=== PATIENT | female | born 1955 | race Caucasian/White ===

== ENCOUNTER 2018-11-09 16:59 | Emergency (ER) | payer BC ==
[2018-11-09 17:30] VITALS: BP 150/72
[2018-11-09] MEDS ORDERED: Tetan/Diph/Pertus SYR(Tdap)* 0.5 ML SYR(BOOSTRIX) use SYR IM ONE (17:35)
[2018-11-09] MEDS ORDERED: Lidocaine 1%** 5 ML VIAL INJ ONE (17:36)
--- NOTE | 2018-11-09 18:58 | UC ---
Laceration HPI - HPI Summary HPI Summary: Pt presents with c/o laceration to right index finger. Pt was walking her dog and the dog went to flavia another animal and pulled quickly on pt's hand and pt' s hand hit metal pole. Pt is unsure of last tetanus shot. - History Of Current Complaint Chief Complaint: UCLaceration Stated Complaint: RIGHT INDEX FINGER LAC Time Seen by Provider: 11/09/18 17:18 Hx Obtained From: Patient Hx Last Menstrual Period: Years ago. Laceration Location: Finger - right index finger Mechanism Of Injury: Blunt Trauma Onset/Duration: Sudden Onset Severity: Moderate Pain Intensity: 0 Pain Scale Used: 0-10 Numeric Aggravating Factors: Position, Movement Related History: Dominant Hand Right - Allergies/Home Medications Allergies/Adverse Reactions: Allergies Allergy/AdvReac Type Severity Reaction Status Date / Time Penicillins AdvReac Diarrhea Verified 11/09/18 17:21 PMH/Surg Hx/FS Hx/Imm Hx Previously Healthy: Yes Other History Of: Negative For: HIV, Hepatitis B, Hepatitis C, Anticoagulant Therapy - Surgical History Surgical History: Yes Surgery Procedure, Year, and Place: right knee ACL repair, left shoulder rotator cuff, tonsills, c-sections x 2, sinus surgery, ear surgeries, gall bladder - Family History Known Family History: Positive: Cardiac Disease, Hypertension - Social History Occupation: Employed Full-time Lives: With Family Alcohol Use: None Substance Use Type: None Smoking Status (MU): Never Smoked Tobacco Have You Smoked in the Last Year: No - Immunization History Most Recent Tetanus Shot: unknown Vaccination Up to Date: No Review of Systems All Other Systems Reviewed And Are Negative: Yes Constitutional: Positive: Negative Skin: Positive: Other - laceration right index finger Eyes: Positive: Negative ENT: Positive: Negative Respiratory: Positive: Negative Cardiovascular: Positive: Negative Gastrointestinal: Positive: Negative Genitourinary: Positive: Negative Motor: Positive: Negative Neurovascular: Positive: Negative Musculoskeletal: Positive: Negative, Myalgia - at laceration site Neurological: Positive: Negative Psychological: Positive: Negative Is Patient Immunocompromised?: No Physical Exam Triage Information Reviewed: Yes Appearance: Pain Distress Vital Signs: Initial Vital Signs Temp 99 F 11/09/18 17:24 Pulse 83 11/09/18 17:24 Resp 18 11/09/18 17:24 BP 150/72 11/09/18 17:24 Pulse Ox 98 11/09/18 17:24 Vital Signs Reviewed: Yes Eye Exam: Normal ENT Exam: Normal, Other - pt is hard of hearing in right ear. Dental Exam: Normal Neck exam: Normal Respiratory: Positive: No respiratory distress Musculoskeletal Exam: Normal Musculoskeletal: Positive: Strength Intact, ROM Intact Neurological Exam: Normal Psychological Exam: Normal Skin Exam: Other - laceration right finger just proximal of PIP joint on dorsal aspect. Laceration Repair - Laceration Repair 1 Description: Linear Laceration Size After Repair: Length (cm) - 2.5, Width (mm) - 4, Depth (mm) - 3 Modified For Repair: No Anesthesia Used: 1.0% Lido - 5 cc Cleansing Completed Via Routine Prep: Yes Irrigation With Pressure Irrigation Device: Yes Closure Material: Sutures - 7 sutures of 4-0 prolene Closure Method: Single Layer Suture Of: Skin Suture Type: Prolene Diagnostics - Radiology No standard instances Radiology Interpretation Completed By: Radiologist - IMPRESSION: NO ACUTE OSSEOUS INJURY. IF SYMPTOMS PERSIST, RECOMMEND REPEAT IMAGING. Laceration Course/Dx - Differential Dx - Laceration/Wound Differental Diagnoses: Laceration, Tendon Laceration - Diagnosis Provider Diagnosis: Laceration of right index finger Discharge - Sign-Out/Discharge Documenting (check all that apply): Patient Departure All imaging exams completed and their final reports reviewed: Yes - Discharge Plan Condition: Stable Disposition: HOME Patient Education Materials: Care For Your Stitches (DC), Laceration (ED) Referrals: Amarjit Hendrickson MD [Primary Care Provider] - If Needed Additional Instructions: Please return to clinic in 8-10 days for suture removal. Please monitor for signs or symptoms of infection that include but not limited to increased tenderness, redness, purulent drainage, swelling, fever and/or chills. Please follow up immediately if you notice any of these. - Billing Disposition and Condition Condition: STABLE Disposition: Home
== END 2018-11-09 18:48 | disposition home or self-care (01) ==
LOC: UCCORT 16:59
DX: S61.210A Laceration without foreign body of right index finger without damage to nail, initial encounter (principal); W22.09XA Striking against other stationary object, initial encounter; Y93.K1 Activity, walking an animal; Y92.9 Unspecified place or not applicable; Z88.0 Allergy status to penicillin
CPT/HCPCS: 12001; 90471; 90715; 99211; G0463

== ENCOUNTER 2024-05-17 22:08 | Observation (INO) ==
[2024-05-17] MEDS: Lactated Ringers 1000 ml BAG 1,000 ML IV ONE (23:53)
[2024-05-18 01:13] LABS: ABS Lymphocytes 0.4 10^3/uL (1.0-4.8); ABS Monocytes 0.9 10^3/uL (0.0-0.9); ABS Neutrophils 6.4 10^3/uL (1.5-7.6); Eosinophil % 0.2 %; Hematocrit 41.3 % (35-45); Hemoglobin 14.2 g/dL (11.5-14.3); Lymphocyte % 4.6 %; Mean Corpuscular Hemoglobin 33.8 pg (27-33); Mean Corpuscular Hgb Conc 34.3 g/dL (31-36); Mean Corpuscular Volume 98.7 fL (80-97); Mean Platelet Volume 8.2 fL (7.5-11.2); Platelet Count 190 10^3/uL (150-450); Red Blood Count 4.19 10^6/uL (3.63-4.92); Red Cell Distribution Width 14.1 % (12-17); White Blood Count 7.6 10^3/uL (3.8-11.8)
[2024-05-18 02:06] LABS: Calcium 8.8 mg/dL (8.6-10.3); Creatinine, Serum 1.13 mg/dL (0.51-0.95); Potassium 3.8 mmol/L (3.5-5.0); eGFR CKD-EPI 52.3 (>60)
[2024-05-18 02:45] LABS: High Sensitivity Troponin 1 Hr 7 pg/mL (<15)
[2024-05-18] MEDS: Iodixanol 320 (CONTRAST) 100 ML SDV IV ONE (03:56)
[2024-05-18] MEDS: Lactated Ringers 1000 ml BAG 1,000 ML IV ONE (07:02)
[2024-05-18] MEDS: NS 0.9% 1000 ml BAG 1,000 ML IV SCH (08:33)
[2024-05-19 06:13] LABS: Calcium 8.1 mg/dL (8.6-10.3); Creatinine, Serum 1.02 mg/dL (0.51-0.95); Potassium 3.5 mmol/L (3.5-5.0); eGFR CKD-EPI 59.2 (>60)
[2024-05-19 14:12] VITALS: BP 151/73
== END 2024-05-19 16:00 | disposition home or self-care (01) ==
LOC: EDHOLD 22:08 → ED 22:08 → MEDTELE 05-18 09:21
PROVIDERS: ADMIT Hospitalist; ATTEND Hospitalist